=== PATIENT | female | born 1960 | race Caucasian/White ===

== ENCOUNTER 2016-10-20 23:39 | Observation (INO) | payer OTHER ==
--- NOTE | ~2016-10-20 | HP ---
History And Physical [place] [id number] [facility] [place]. [address] NAME: MICA ESPINAL : 64 STATUS : ADM Carroll PAT#: [id number] AGE: 56 ADM/REG DATE : 10/21/16 MR#: [id number] REPORT SERV DATE: 10/21/16 DICTATED BY: LOWELL BURGESS DATE: 10/21/16 REPORT STATUS : Draft TRANSCRIBED BY: MODKentrell DATE: 10/21/16 DATE OF ADMISSION: 10/21/2016 CHIEF COMPLAINT: Chest pain and shortness of breath. HISTORY OF PRESENT ILLNESS: Very pleasant, 56-year-old, white female with no known history of CAD, states that over the last two weeks, she has experienced some mild chest pressure and shortness of breath, at times with exertion such as walking around [facility], on a trip recently. On 10/20 around 1730, she again experienced substernal chest pain that radiated to her left shoulder that was increased to more intense from her previous episodes. She reports associated nausea. Denies any shortness of breath, diaphoresis, dizziness, or belching. She describes the discomfort as a pressure and a squeezing. At its most intense, she rates the chest pain a 5/10. At time of interview in the [facility], she is pain free. She states the episode lasted several hours in duration and may be related to stress at her job. The patient denies any personal history of myocardial infarction, stroke, DVT, or pulmonary embolus. The patient denies any recent fever or chills, no palpitations, no syncopal episodes. Denies PND or orthopnea. PAST MEDICAL HISTORY: 1. GERD. 2. History of nephrolithiasis. 3. Positive family history for early CAD. SURGICAL HISTORY: 1. Left Achilles tendon repair. 2. Right bunionectomy. 3. Tonsillectomy. SOCIAL HISTORY: She is with two children. 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 She does not have a structured exercise routine. Denies tobacco or illicit's. Consumes 1 drink three to four times weekly. FAMILY HISTORY: Mother with a heart attack in her 50s and bypass, at the age of 61. Multiple maternal aunts with early CAD. Father in his 80s of prostate cancer. REVIEW OF SYSTEMS: A 14-point review of systems performed, significant for HPI. No other contributory diagnoses identified. ALLERGIES: SULFA, CODEINE, AND LATEX. HOME MEDICATIONS: Prilosec 20 mg daily, Valtrex p.r.n., Mobic p.r.n., and progesterone p.r.n. History And Physical [address] [address] NAME: MICA ESPINAL : 64 STATUS : ADM [place] PAT#: [id number] AGE: 56 ADM/REG DATE : 10/21/16 MR#: [id number] REPORT SERV DATE: 10/21/16 DICTATED BY: LOEWLL BURGESS DATE: 10/21/16 REPORT STATUS : Draft TRANSCRIBED BY: LISA DATE: 10/21/16 PHYSICAL EXAMINATION: VITAL SIGNS: Blood pressure 107/56, pulse 76, respirations 20, temperature 98.2, O2 saturation 97% on room air, height 5 feet 3 inches, weight 130 pounds, BMI 23. GENERAL: Cooperative, in no apparent distress. HEENT: Pupils 2 mm, sclera nonicteric. Nares patent. Moist mucous membranes. No xanthelasma. NECK: Trachea midline, no thyromegaly. No JVD. No bruits. LYMPH: No cervical lymphadenopathy. No supraclavicular lymphadenopathy. RESPIRATORY: Unlabored respirations. Breath sounds clear bilaterally to posterior auscultation. No wheezes or rhonchi. CARDIOVASCULAR: Regular rate. No murmur, rub or gallop appreciated. Extremities without edema. Pulses 2+ bilaterally. ABDOMEN: Soft, nontender, nondistended, normal bowel sounds auscultated throughout. No organomegaly. SKIN: Warm, dry extremities. No pallor, or cyanosis. PSYCHIATRIC: Appropriate affect. Alert, oriented x3. LABORATORY DATA: Troponin less than 0.02 x3. Potassium 3.5, BUN 18, creatinine 0.89, glucose 88, and magnesium 1.9. WBC 8.7, hemoglobin 14.1, hematocrit 41.0, platelet count 234,000. D-dimer less than 0.27. EKG, sinus rhythm. ASSESSMENT AND PLAN: 1. Substernal chest pain. The patient has been observed in the [facility] overnight to rule out myocardial infarction with serial enzymes and serial EKGs and held n.p.o. We will proceed with exercise treadmill today and discharge home if low risk, no ischemia. If anything suggestive of ischemia, Cardiology referral will be initiated. Otherwise, the patient will be asked to follow up with PCP in one to two weeks with all studies being sent to that office. 2. Shortness of breath, recent travel to [place]. D-dimer less than 0.27. 3. Gastroesophageal reflux disease. Continue home medications. RISHI/LISA AURA Hewitt, CONTACT CENTER MANAGER-BC / [id number] CC: AURA Hewitt, CONTACT CENTER MANAGER-BC Sweetie Morgan M.D.
[2016-10-20 18:52] LABS: BASOPHILS 0.5 %; BASOPHILS ABSOLUTE 0.04 10/3/uL (0.0-0.16); EOSINOPHILS 0.8 %; EOSINOPHILS ABSOLUTE 0.07 10/3/uL (0.0-0.53); HEMOGLOBIN 14.1 g/dL (12.0-16.0); IMMATURE GRANULOCYTES 0.2 %; IMMATURE GRANULOCYTES ABSOLUTE 0.02 10/3/uL (0.0-0.11); LYMPHOCYTES 29.6 %; LYMPHOCYTES ABSOLUTE 2.58 10/3/uL (0.67-4.30); MEAN CORPUS HGB CONC 34.4 g/dL (32.0-36.0); MEAN CORPUSCULAR HEMOGLOB 30.9 pg (26.0-34.0); MEAN CORPUSCULAR VOLUME 89.9 fL (80-100); MEAN PLATELET VOLUME 10.3 fL (9.2-13.0); MONOCYTES 8.3 %; MONOCYTES ABSOLUTE 0.72 10/3/uL (0.21-1.20); NEUTROPHILS 60.6 %; NEUTROPHILS ABSOLUTE 5.29 10/3/uL (2.02-8.40); PLATELET COUNT 234 10/3/uL (150-400); RBC DISTRIBUTION WIDTH 12.8 % (12.0-16.0); RED CELL COUNT 4.56 10/6/uL (4.0-5.6); WHITE BLOOD CELLS 8.7 10/3/uL (4.5-10.5)
[2016-10-20 18:54] LABS: MANUAL DIFF NO %
[2016-10-20 19:02] LABS: INTERNATIONAL NORMAL RATI 0.9 UNITS (-); PARTIAL THROMBO TIME 24.9 SEC (22.5-37.2); PROTIME (NOT ORD) 12.4 SEC (12.0-14.5)
[2016-10-20 19:12] LABS: BUN (BLOOD UREA NITROGEN) 18 MG/DL (6-23); CALCIUM, SERUM 8.9 MG/DL (8.5-10.4); CHEST PAIN PROFILE TAT 0 Hrs 26 Mins; CHLORIDE, SERUM 104 MMOL/L (96-112); CO2 (CARBON DIOXIDE) 27 MMOL/L (24-34); CREATININE 0.89 MG/DL (0.55-1.02); GFR AFRICAN AMERICAN 85 ML/MIN (>=60); GFR NON AFRICAN AMERICAN 73 ML/MIN (>=60); GLUCOSE, SERUM 88 MG/DL (60-99); POTASSIUM, SERUM 3.5 MMOL/L (3.5-5.3); SODIUM, SERUM 140 MMOL/L (135-148); TROPONIN I <0.02 NG/ML (<0.05)
[2016-10-21] MEDS ORDERED: PRILO PO (02:10)
== END 2016-10-21 11:54 | disposition home or self-care (01) ==
LOC: ER 23:39 → CDU1 10-21 02:06
PROVIDERS: Emergency Medicine
DX: R07.2 Precordial pain (principal); K21.9 Gastro-esophageal reflux disease without esophagitis; Z87.442 Personal history of urinary calculi; Z90.89 Acquired absence of other organs; Z88.2 Allergy status to sulfonamides; Z91.040 Latex allergy status; Z88.5 Allergy status to narcotic agent
CPT/HCPCS: 71020; 80048; 82962; 83735; 84484; 85025; 85379; 85610; 85730; 93005; 93017; 99285; A9270-GY; G0378